=== PATIENT | female | born 1935 | race Caucasian/White ===

== ENCOUNTER 2022-05-27 21:46 | Inpatient (IN) | payer MEDICARE, OTHER ==
[~2022-05-27] VITALS: Ht 154.9 cm; Wt 36.7 kg
[~2022-05-27 21:46] MED LIST: ACET-2605 PO; ASPI-1420 PO; CALC-838 PO; CALC1TAB30 PO; CRAN500C5 PO; DEXT1CAP3 PO; DOCU-141 PO; DOCU-270 PO; HYDR-4384 PO; METO25TA6 PO; MULT-754 PO; MULT1TAB11 PO
--- NOTE | 2022-05-27 21:55 | NUR ---
[id number] FROM [facility] FOR "DARK COFFEE LIKE EMESIS" HX ULCERS. 88% ON RA. NOW 100% ON NRB. PATIENT IS AAOX3. ATTACHED TO MONITOR. VITALS CHECKED.
--- NOTE | 2022-05-27 22:07 | NUR ---
IRENE TOLBERT AT BEDSIDE FOR EKG
--- NOTE | 2022-05-27 22:07 | NUR ---
IV LINE ESTABLISHED, [id number]
--- NOTE | 2022-05-27 22:07 | NUR ---
BLOOD AND CULTURES COLLECTED
--- NOTE | 2022-05-27 22:40 | NUR ---
COVID SWAB DONE AND SENT TO LAB
[2022-05-27 22:42] LABS: BASOPHILS % (AUTO) 0.1 % (0.0-2.0); HEMATOCRIT 44 % (33-45); HEMOGLOBIN 14.3 g/dL (11.5-14.8); LYMPHOCYTES # (AUTO) 0.5 K/uL (0.8-4.8); LYMPHOCYTES % (AUTO) 3.8 % (20.0-44.0); MEAN CORPUSCULAR HGB CONC 32 g/dl (31.0-36.0); MEAN CORPUSCULAR VOLUME 82 fL (82-100); MONOCYTES # (AUTO) 0.4 K/uL (0.1-1.30); NEUTROPHILS # (AUTO) 12.2 K/uL (1.8-8.9); NEUTROPHILS % (AUTO) 93.1 % (43.0-81.0); PLATELET COUNT (AUTO) 145 K/uL (150-450); RED BLOOD CELL COUNT(AUTO) 5.42 MIL/uL (4.0-5.2); WHITE BLOOD COUNT (AUTO) 13.1 K/uL (4.3-11.0)
[2022-05-27] MEDS ORDERED: IV NS 0.9% 1,000 ML BAG IV ONE (23:00)
[2022-05-27 23:01] LABS: CARBON DIOXIDE 26 mmol/L (21-32); CHLORIDE 117 mmol/L (98-107); CREATININE 1.2 mg/dL (0.6-1.3); GLUCOSE 238 mg/dL (74-106); POTASSIUM 3.8 mmol/L (3.5-5.1); SODIUM SERUM 143 mmol/L (136-145); UREA NITROGEN, BLOOD 38 mg/dL (7-18)
[2022-05-27 23:10] LABS: ALANINE AMINOTRANSFERASE 16 U/L (12-78); ALBUMIN 3.3 g/dL (3.4-5.0); ALKALINE PHOSPHATASE 70 U/L (46-116); ASPARTATE AMINOTRANSFERASE 38 U/L (15-37); BILIRUBIN,DIRECT 0.2 mg/dL (0.0-0.2); BILIRUBIN,TOTAL 0.5 mg/dL (0.2-1.0); LIPASE 220 U/L (73-393); TOTAL PROTEIN, SERUM 7.3 g/dL (6.4-8.2)
[2022-05-28] VITALS (9 sets, daily range): BP systolic 82–111; BP diastolic 1–77
--- NOTE | 2022-05-28 00:23 | NUR ---
BED 322-2
--- NOTE | 2022-05-28 00:30 | NUR ---
REPORT GIVEN TO ADI DECEMBER.
[2022-05-28] MEDS ORDERED: MIRT-121 PO (00:35)
[2022-05-28] MEDS ORDERED: SENN-18 PO (00:35)
[2022-05-28] MEDS ORDERED: GABA-532 PO (00:35)
[2022-05-28] MEDS ORDERED: AMIN30LI2 PO (00:35)
--- NOTE | 2022-05-28 01:30 | NUR ---
PARKING ENFORCEMENT SPECIALISTALTERNATIVE EDUCATION TEACHER NOTES RECEIVED PATIENT FROM ED VIA [facility] AT 0110 UNDER THE CARE OF ROSA MATIAS WITH DX OF SEPSIS AND GI BLEEDING. PATIENT IS A/O X0, DOES NOT RESPOND TO QUESTIONS. ON O2 AT 15LPM VIA NON-REBREATHER MASK. BREATHING EVEN AND NON-LABORED. NOT IN APPARENT DISTRESS. NO PAIN OR DISCOMFORT NOTED. HAS RIGHT FOREARM IV ACCESS #20G AND SALINE LOCKED. NO S/S OF INFILTRATION NOTED. INCONTINENT WEARING DIAPER. VS TAKEN. PHYSICAL ASSESSMENT DONE AND PHOTOS TAKEN. ALL BELONGINGS ACCOUNTED FOR. ORIENTED PATIENT TO UNIT AND STAFF. SAFETY PRECAUTIONS IN PLACE: BED LOW AND LOCKED, SIDE RAILS UP X3, CALL LIGHT WITHIN REACH. WILL CONTINUE POC.
--- NOTE | 2022-05-28 01:36 | NUR ---
TRANSFERRED PT TO ROOM
[2022-05-28] MEDS ORDERED: DEXTROSE 50%-WATER 50 ML DISP.SYRIN IV PRN (02:30)
[2022-05-28] MEDS ORDERED: MAGNESIUM HYDROXIDE 30 ML UDC PO PRN (02:30)
[2022-05-28] MEDS ORDERED: HYDROCODONE/APAP 5/325MG TABLET PO PRN (02:30)
[2022-05-28] MEDS ORDERED: ZOLPIDEM TARTRATE 5 MG TABLET PO PRN (02:30)
[2022-05-28] MEDS ORDERED: INSULIN REGULAR, HUMAN 100 UNIT/ML 3 ML VIAL SQ PRN (02:30)
[2022-05-28] MEDS ORDERED: Z GUARD REMEDY 4 OZ OINT TP PRN (02:30)
[2022-05-28] MEDS ORDERED: CEFTRIAXONE 1 G in IV D5W 50 ML IV SCH (02:30)
[2022-05-28] MEDS ORDERED: ONDANSETRON HCL/PF 4 MG/2 ML VIAL IVP PRN (02:30)
[2022-05-28] MEDS ORDERED: MAG HYDROX/AL HYDROX/SIMETH 30 ML UDC PO PRN (02:30)
[2022-05-28] MEDS ORDERED: ACETAMINOPHEN 325 MG TABLET PO PRN (02:30)
[2022-05-28] MEDS ORDERED: CEFTRIAXONE 1 G VIAL ONE (02:42)
[2022-05-28] MEDS: PANTOPRAZOLE 40 MG VIAL IV SCH ×3 (03:02→21:03)
[2022-05-28] MEDS ORDERED: METRONIDAZOLE 500MG/ NS 100ML 100 ML IV ONE (03:38)
[2022-05-28] MEDS: METRONIDAZOLE 500MG/ NS 100ML 500 MG in PREMIX 1 EA IV SCH ×3 (03:48→18:46)
--- NOTE | 2022-05-28 04:00 | NUR ---
SIGNAL MAINTAINER NOTES RECEIVED CALL FROM LAB FOR CRITICAL LAB VALUES, AWARE: - LACTIC ACID 2.2 - PROCALCITONIN 28.12
--- NOTE | 2022-05-28 04:10 | NUR ---
SURGICAL ELASTIC KNITTER HAND FRAME NOTES SPOKE [place]/ ROBBY FROM [facility] AND ASKED FOR PATIENT'S VACCINATION RECORD. SHE WILL FAX IT TO ME. I ALSO NOTIFIED PATIENT'S UZIEL AYDEN. Addendum: 05/28/22 at 0426 by December ARDEN JOSHI RECEIVED A CALL BACK FROM ROBBY AND SHE CAN'T FIND THE PATIENT'S VACCINATION RECORD. WILL ENDORSE TO NEXT SHIFT.
--- NOTE | 2022-05-28 05:00 | NUR ---
OCEANOLOGY TEACHER NOTES URINE SAMPLE TAKEN VIA STRAIGHT CATH AND SENT TO LAB.
[2022-05-28] MEDS: BLOOD SUGAR DIAGNOSTIC 1 EACH STRIP IN SCH ×4 (06:36→21:52)
[2022-05-28 06:43] LABS: CALCIUM, SERUM 7.7 mg/dL (8.5-10.1); MAGNESIUM 2.1 mg/dL (1.8-2.4); PHOSPHORUS 3.1 mg/dL (2.5-4.9); POTASSIUM 4.1 mmol/L (3.5-5.1)
[2022-05-28 06:43] LABS: BILIRUBIN,URINE NEGATIVE (NEGATIVE); COLOR,URINE YELLOW (YELLOW); LEUKOCYTE ESTERASE ,URINE 3+ (NEGATIVE); NITRITE, URINE POSITIVE (NEGATIVE); PH,URINE 5.5 (5.0-8.0); PROTEIN,URINE NEGATIVE (NEGATIVE); UGLUCOSE NEGATIVE (NEGATIVE); UROBILINOGEN,URINE 0.2 EU/dL (0.2)
[2022-05-28 06:55] LABS: BASOPHILS % (AUTO) 0.1 % (0.0-2.0); HEMATOCRIT 36 % (33-45); HEMOGLOBIN 11.6 g/dL (11.5-14.8); LYMPHOCYTES # (AUTO) 0.8 K/uL (0.8-4.8); LYMPHOCYTES % (AUTO) 6.1 % (20.0-44.0); MEAN CORPUSCULAR HGB CONC 33 g/dl (31.0-36.0); MEAN CORPUSCULAR VOLUME 81 fL (82-100); MONOCYTES # (AUTO) 0.6 K/uL (0.1-1.30); MONOCYTES % (AUTO) 4.5 % (2.0-12.0); NEUTROPHILS # (AUTO) 12.3 K/uL (1.8-8.9); NEUTROPHILS % (AUTO) 89.3 % (43.0-81.0); PLATELET COUNT (AUTO) 97 K/uL (150-450); RED BLOOD CELL COUNT(AUTO) 4.38 MIL/uL (4.0-5.2); WHITE BLOOD COUNT (AUTO) 13.8 K/uL (4.3-11.0)
--- NOTE | 2022-05-28 06:57 | NUR ---
NATIONAL ACCOUNTS RECRUITERSUPERVISOR TAN ROOM NOTES PATIENT LAYING IN BED AWAKE. STILL NO VERBAL RESPONSE. HYPOTENSION NOTED, ELEVATED LEGS. WARM TO TOUCH BUT AFEBRILE. NO SOB OR NOTED. TITRATED O2 TO 2LPM VIA NASAL CANULA SATURATING FROM 95-99%. ON TELE MONITOR READING SINUS TACHYCARDIA AT 122 BPM. RIGHT FOREARM IV ACCESS INTACT, PATENT AND FLUSHING. ALL DUE MEDS GIVEN AND NEEDS ATTENDED. SKIN CARE RENDERED. TURNED Q2H AND OFFLOAD. SAFETY PRECAUTIONS MAINTAINED. WILL ENDORSE TO NEXT SHIFT FOR AVTAR.
--- NOTE | 2022-05-28 06:58 | NUR ---
INSTRUCTIONAL TECHNOLOGY FACILITATOR CLOSING NOTES PATIENT LAYING IN BED AWAKE. STILL NO VERBAL RESPONSE. HYPOTENSION NOTED, ELEVATED LEGS. WARM TO TOUCH BUT AFEBRILE. NO SOB OR NOTED. TITRATED O2 TO 2LPM VIA NASAL CANULA SATURATING FROM 95-99%. ON TELE MONITOR READING SINUS TACHYCARDIA AT 122 BPM. RIGHT FOREARM IV ACCESS INTACT, PATENT AND FLUSHING. ALL DUE MEDS GIVEN AND NEEDS ATTENDED. SKIN CARE RENDERED. TURNED Q2H AND OFFLOAD. SAFETY PRECAUTIONS MAINTAINED. WILL ENDORSE TO NEXT SHIFT FOR AVTAR.
--- NOTE | 2022-05-28 07:30 | NUR ---
RN Receiving Report. Not able to assess patients mental status. IV running as ordered with no signs of infiltration. Patient looks comfortable and clean, no signs of distress or discomfort. All safety precautions taken, call light and table within reach, bed at lowest position.
[2022-05-28 08:30] LABS: BACTERIA,URINE Many /HPF (None Seen); SQUAMOUS EPITHELIAL CELL,UR Few /HPF (None Seen); WBC,URINE 21-50 /HPF (0-3)
[2022-05-28 08:47] LABS: THYROID STIMULATING HORMONE 0.495 uIU/mL (0.358-3.74)
[2022-05-28] MEDS ORDERED: HYDR-4209 PO (08:48)
[2022-05-28] MEDS ORDERED: MAGN400O6 PO (08:48)
[2022-05-28] MEDS ORDERED: METO25CA PO (08:48)
[2022-05-28] MEDS ORDERED: BISA10SU11 RC (08:48)
[2022-05-28] MEDS ORDERED: NA P133E RC (08:48)
[2022-05-28] MEDS ORDERED: MULT-447 PO (08:48)
[2022-05-28] MEDS ORDERED: ACET-868 PO (08:48)
[2022-05-28] MEDS: GABAPENTIN 100 MG CAPSULE PO SCH ×2 (09:00→17:00)
[2022-05-28] MEDS ORDERED: METOPROLOL TARTRATE 25 MG TABLET PO SCH (09:00)
[2022-05-28] MEDS: PROSOURCE / PROSTAT (PYXIS) 30 ML UDC PO SCH (09:00)
[2022-05-28] MEDS: MULTIVIT W/MINERALS 1 TAB TABLET PO SCH (09:00)
[2022-05-28] MEDS: CALCIUM CARB 250MG /VITAMIN D 1 UDTAB PO SCH (09:00)
[2022-05-28] MEDS: FUROSEMIDE 20 MG/2 ML VIAL IV SCH ×2 (09:56→17:18)
[2022-05-28] MEDS: METOPROLOL TARTRATE 25 MG TABLET PO SCH ×2 (10:00→21:00)
--- NOTE | 2022-05-28 10:21 | NUR ---
WOUND CARE CONSULT: PT PRESENTS WITH CACHEXIA, LEFT ELBOW SCAR, SACRAL INTACT DEEP TISSUE INJURY AND SCARRING, PRESENT ON ADMISSION. RECOMMENDATIONS MADE FOR SKIN PROTECTION. DISCUSSED WITH NURSING STAFF. PT IS INCONTINENT. PT TO BE PLACED ON LUIS A ISOFLEX LOW AIRLOSS BED. IN AGREEMENT WITH PLAN OF CARE. Addendum: 05/28/22 at 1024 by PITER MACKENZIE WNDNU Amended: Links added.
[2022-05-28 11:22] LABS: BAND % (MANUAL) 21 % (0.0-5.0); LYMPHOCYTES % (MANUAL) 10 % (16-48); MONOCYTES % (MANUAL) 4 % (0-11.0); NEUTROPHILS % (MANUAL) 65 (42-76)
--- NOTE | 2022-05-28 18:39 | NUR ---
RN Closing Note Not able to assess patient mental status, patient responds to touch by opening and moving eyes. Administered pain medication and provided care as needed. All safety precautions taken throughout shift. Call light and table within reach, bed at lowest position.
--- NOTE | 2022-05-28 19:30 | NUR ---
LANDSCAPE CREW LEADER OPENING NOTE RECEIVED PATIENT IN BED, AWAKE, WITH EYES OPEN. AFEBRILE AND NOT IN ANY FORM OF ACUTE DISTRESS. ON O2 INHALATION VIA NASAL CANNULA AT 2LPM. MAINTAINED ON NPO ORDERED. WITH IV ACCESS ON RFA 20G SL. SAFETY MEASURES IN PLACE. KEPT BED IN LOCKED AND IN LOW POSITION TO REDUCE INJURY. SIDE RAILS UP X2. CALL LIGHT WITHIN EASY REACH.
[2022-05-28] MEDS: MEROPENEM 500 MG in IV NS 0.9% 50 ML IV SCH (21:12)
[2022-05-28] MEDS: MIRTAZAPINE 15 MG TABLET PO SCH (21:54)
--- NOTE | 2022-05-28 21:54 | NUR ---
DISABILITIES SERVICES OFFICER NOTE PATIENT REMAINS TO BE NPO. BG CHECK DONE 115MG/DL NO COVERAGE NEEDED. ALSO, MIRTAZAPINE WAS HELD SINCE PATIENT IS DIAGNOSED WITH GI BLEED. CHARGE NURSE NOTIFIED ABOUT THE SITUATION AND ADVISED TO JUST HOLD MEDICATION AT THIS TIME.
[2022-05-29] VITALS: BP 112/55
[2022-05-29 04:00] VITALS: BP 117/68
[2022-05-29 06:19] LABS: BASOPHILS % (AUTO) 0.1 % (0.0-2.0); EOSINOPHILS % (AUTO) 0.7 % (0.0-6.0); HEMATOCRIT 33 % (33-45); HEMOGLOBIN 10.9 g/dL (11.5-14.8); LYMPHOCYTES # (AUTO) 0.9 K/uL (0.8-4.8); LYMPHOCYTES % (AUTO) 11.3 % (20.0-44.0); MEAN CORPUSCULAR HGB CONC 33 g/dl (31.0-36.0); MEAN CORPUSCULAR VOLUME 82 fL (82-100); MONOCYTES # (AUTO) 0.3 K/uL (0.1-1.30); MONOCYTES % (AUTO) 3.7 % (2.0-12.0); NEUTROPHILS # (AUTO) 6.4 K/uL (1.8-8.9); NEUTROPHILS % (AUTO) 84.2 % (43.0-81.0); PLATELET COUNT (AUTO) 78 K/uL (150-450); WHITE BLOOD COUNT (AUTO) 7.6 K/uL (4.3-11.0)
[2022-05-29 06:29] LABS: CALCIUM, SERUM 8.4 mg/dL (8.5-10.1); CARBON DIOXIDE 28 mmol/L (21-32); CHLORIDE 110 mmol/L (98-107); GLUCOSE 116 mg/dL (74-106); MAGNESIUM 2.1 mg/dL (1.8-2.4); PHOSPHORUS 3.1 mg/dL (2.5-4.9); POTASSIUM 3.3 mmol/L (3.5-5.1); SODIUM SERUM 147 mmol/L (136-145); UREA NITROGEN, BLOOD 33 mg/dL (7-18)
--- NOTE | 2022-05-29 06:30 | NUR ---
MILK DELIVERY DRIVER CLOSING NOTE PATIENT IN BED, ASLEEP BUT EASY TO AROUSE AND RESPONDS TO VERBAL AND TACTILE STIMULI. AFEBRILE AND NOT IN ANY FORM OF ACUTE DISTRESS. ON O2 INHALATION VIA NASAL CANNULA AT 2LPM. MAINTAINED ON NPO ORDERED. WITH IV ACCESS ON RFA 20G SL. MEDICATED ORDERED. ON IV ATB, MONITORED FOR ANY ADVERSE REACTION. SAFETY MEASURES IN PLACE. KEPT BED IN LOCKED AND IN LOW POSITION TO REDUCE INJURY. SIDE RAILS UP X2. CALL LIGHT WITHIN EASY REACH. TURNED AND REPOSITIONED EVERY 2 HOURS AND TOLERATED TO PROMOTE PROPER CIRCULATION BY ASSIGNED STAFF. ALL NURSING NEEDS ATTENDED. ENDORSED TO INCOMING SHIFT FOR CONTINUITY OF CARE.
[2022-05-29] MEDS: BLOOD SUGAR DIAGNOSTIC 1 EACH STRIP IN SCH ×4 (06:41→23:18)
--- NOTE | 2022-05-29 07:36 | NUR ---
RN Opening Note. Not able to assess patients mental status. Patient sleeping, easily aroused to name. IV with no signs of infiltration. Patient looks comfortable and clean, no signs of distress or discomfort. Patient on oxygen supplement with no signs of respiratory distress. Made patient aware of care plan, not able to comprehend. All safety precautions taken, call light and table within reach, bed at lowest position.
[2022-05-29 08:00] VITALS: BP 120/60
[2022-05-29] MEDS: MULTIVIT W/MINERALS 1 TAB TABLET PO SCH (09:00)
[2022-05-29] MEDS: GABAPENTIN 100 MG CAPSULE PO SCH ×2 (09:00→17:00)
[2022-05-29] MEDS: PROSOURCE / PROSTAT (PYXIS) 30 ML UDC PO SCH (09:00)
[2022-05-29] MEDS: CALCIUM CARB 250MG /VITAMIN D 1 UDTAB PO SCH (09:00)
[2022-05-29] MEDS ORDERED: Medication Not On Formulary EA (Metoprolol Succinate (Kapspargo Sprinkle) 25 MG) PO SCH (09:00)
[2022-05-29] MEDS: METOPROLOL TARTRATE 25 MG TABLET PO SCH ×2 (09:00→21:00)
[2022-05-29] MEDS: PANTOPRAZOLE 40 MG VIAL IV SCH ×2 (09:22→21:51)
[2022-05-29] MEDS: FUROSEMIDE 20 MG/2 ML VIAL IV SCH (09:22)
[2022-05-29] MEDS: MEROPENEM 500 MG in IV NS 0.9% 50 ML IV SCH ×2 (09:24→21:51)
[2022-05-29] MEDS: POTASSIUM CL. PREMIX PERIPHER. 50 ML IV SCH ×2 (11:18→12:03)
[2022-05-29 16:25] VITALS: BP 115/59
[2022-05-29 17:39] LABS: BAND % (MANUAL) 4 % (0.0-5.0); BASOPHILS % (MANUAL) 0 % (0.0-2.0); EOSINOPHILS % (MANUAL) 0 % (0-4); LYMPHOCYTES % (MANUAL) 9 % (16-48); MONOCYTES % (MANUAL) 3 % (0-11.0); NEUTROPHILS % (MANUAL) 84 (42-76)
--- NOTE | 2022-05-29 18:24 | NUR ---
RN Closing Note Not able to assess patient mental status, patient responds to touch by opening and moving eyes. Niece was here, states she has not seen patient in months. Would like to discussed options to provide comfort to patietn. Patient did not try to engage with patient, remained flat affect. Administered pain medication and provided care as needed. Patient to remain NPO since pt did not pass swallow eval. All safety precautions taken throughout shift. Call light and table within reach, bed at lowest position.
--- NOTE | 2022-05-29 19:35 | NUR ---
NEGATIVE DEVELOPER OPENING NOTE RECEIVED PT IN BED, SLEEPING AT THIS TIME. UNABLE TO ASSESS MENTAL STATUS, RESPONDS TO TOUCH BY OPENING EYES. ON O2 2LPM VIA NC, WITH NO S/S OF SOB OR LABORED BREATHING. ON TELE MONITOR READING SR, HR 74. PUREWICK INTACT WITH 150 ML URINE OUTPUT NOTED. IV ACCESS RFA #20G SL, PATENT AND INTACT. SAFETY PRECAUTIONS IN PLACE: BED LOCKED AND IN LOW POSITION, SIDE RAILS UP X3, CALL LIGHT WITHIN REACH. WILL CONTINUE TO MONITOR AND ASSIST.
[2022-05-29 20:00] VITALS: BP 142/72
[2022-05-29] MEDS ORDERED: DEXTROSE 50%-WATER 50 ML DISP.SYRIN IV PRN (20:30)
[2022-05-29] MEDS: MIRTAZAPINE 15 MG TABLET PO SCH (21:53)
[2022-05-29] MEDS: INSULIN REGULAR, HUMAN 100 UNIT/ML 3 ML VIAL SQ PRN (23:19)
[2022-05-30] VITALS: BP 107/61
[2022-05-30] MEDS ORDERED: IV D5/0.45 NACL 1,000 ML IV ONE (01:00)
[2022-05-30 04:00] VITALS: BP 132/69
[2022-05-30 05:58] LABS: BASOPHILS % (AUTO) 0.1 % (0.0-2.0); EOSINOPHILS % (AUTO) 0.9 % (0.0-6.0); HEMATOCRIT 33 % (33-45); HEMOGLOBIN 10.9 g/dL (11.5-14.8); LYMPHOCYTES # (AUTO) 0.7 K/uL (0.8-4.8); LYMPHOCYTES % (AUTO) 11.1 % (20.0-44.0); MEAN CORPUSCULAR HGB CONC 33 g/dl (31.0-36.0); MEAN CORPUSCULAR VOLUME 83 fL (82-100); MONOCYTES # (AUTO) 0.3 K/uL (0.1-1.30); MONOCYTES % (AUTO) 4.3 % (2.0-12.0); NEUTROPHILS % (AUTO) 83.6 % (43.0-81.0); PLATELET COUNT (AUTO) 86 K/uL (150-450); RED BLOOD CELL COUNT(AUTO) 3.98 MIL/uL (4.0-5.2)
[2022-05-30 06:25] LABS: ALBUMIN 3.1 g/dL (3.4-5.0); BILIRUBIN,TOTAL 0.6 mg/dL (0.2-1.0); MAGNESIUM 2.3 mg/dL (1.8-2.4); PHOSPHORUS 3.5 mg/dL (2.5-4.9); POTASSIUM 3.6 mmol/L (3.5-5.1)
--- NOTE | 2022-05-30 07:20 | NUR ---
BLEACH CHLORINATOR CLOSING NOTE PT IN BED, SLEEPING AT THIS TIME. UNABLE TO ASSESS MENTAL STATUS, RESPONDS TO TOUCH BY OPENING EYES. STABLE ON O2 2LPM VIA NC, WITH NO S/S OF SOB OR LABORED BREATHING. ON TELE MONITOR READING SR, HR 71. PUREWICK INTACT. IV ACCESS RFA #20G RUNNING D5 1/2 NS @ 80 ML/HR, PATENT AND INTACT. ALL CARE PROVIDED AND ADMINISTERED MEDICATIONS TOLERATED WELL. SAFETY PRECAUTIONS MAINTAINED: BED LOCKED AND IN LOW POSITION, SIDE RAILS UP X3, CALL LIGHT WITHIN REACH. WILL ENDORSE AVTAR TO SHIPBUILDING DRAFTSPERSON NURSE.
[2022-05-30] MEDS: BLOOD SUGAR DIAGNOSTIC 1 EACH STRIP IN SCH ×4 (07:33→23:44)
[2022-05-30] MEDS: INSULIN REGULAR, HUMAN 100 UNIT/ML 3 ML VIAL SQ PRN ×2 (07:34→23:45)
--- NOTE | 2022-05-30 07:34 | NUR ---
RN NOTE INSULIN NON-ADMIN DUE TO STARTED ONE TIME DOSE OF D5 1/2 NS 80 ML/HR FROM LAST NIGHT. PT BLOOD GLUCOSE BASELINE IS TYPICALLY LOWER WITHOUT THE IV FLUID (PREVIOUS: 95, 101, 109).
[2022-05-30 08:00] VITALS: BP 141/68
[2022-05-30 08:01] LABS: LYMPHOCYTES % (MANUAL) 12 % (16-48); MONOCYTES % (MANUAL) 3 % (0-11.0); NEUTROPHILS % (MANUAL) 85 (42-76)
[2022-05-30] MEDS: PANTOPRAZOLE 40 MG VIAL IV SCH (08:58)
[2022-05-30] MEDS: METOPROLOL TARTRATE 25 MG TABLET PO SCH ×2 (08:58→20:52)
[2022-05-30] MEDS: CALCIUM CARB 250MG /VITAMIN D 1 UDTAB PO SCH (08:59)
[2022-05-30] MEDS: GABAPENTIN 100 MG CAPSULE PO SCH ×2 (08:59→17:00)
[2022-05-30] MEDS: MULTIVIT W/MINERALS 1 TAB TABLET PO SCH (09:00)
[2022-05-30] MEDS: PROSOURCE / PROSTAT (PYXIS) 30 ML UDC PO SCH (09:00)
[2022-05-30] MEDS: MEROPENEM 500 MG in IV NS 0.9% 50 ML IV SCH ×2 (09:18→20:35)
[2022-05-30 15:58] VITALS: BP 136/64
--- NOTE | 2022-05-30 18:41 | NUR ---
RN Closing Note Not able to assess patient mental status, patient responds to touch by opening and moving eyes. Per Dr. BARAKAT no invasive procedures, no EGD, no GTube. Would like to discussed options to provide comfort to patient. Patient remained flat affect throughout shift, non arousal. Administered pain medication and provided care as needed. Patient to remain NPO since pt did not pass swallow eval. All safety precautions taken throughout shift. Call light and table within reach, bed at lowest position.
--- NOTE | 2022-05-30 19:30 | NUR ---
FURNITURE MANAGER OPENING NOTE RECEIVED PT IN BED, AWAKE, A/O X 1. RESPONDS TO NAME AND TOUCH. CURRENTLY ON O2 VIA NC @ 2 LPM, TOLERATING WELL WITH NO S/SX OF ACUTE RESPI DISTRESS NOTED. NO SOB UPON ASSESSMENT. BREATHING IS EVEN AND UNLABORED. ON TELE MONITOR READING SR, HR 80s. IV ACCESS NOTED ON RFA #20G SL, PATENT AND INTACT. ALL SAFETY PRECAUTIONS IN PLACE: BED LOCKED AND IN LOW POSITION, SIDE RAILS UP X3, CALL LIGHT WITHIN REACH. WILL CONTINUE TO MONITOR T/O THE NIGHT.
[2022-05-30 20:00] VITALS: BP 135/49
[2022-05-30] MEDS: PANTOPRAZOLE 40 MG/PACK PACK PO SCH (20:53)
[2022-05-30] MEDS: MIRTAZAPINE 15 MG TABLET PO SCH (21:16)
--- NOTE | 2022-05-30 21:16 | NUR ---
RN NOTE HELD ALL PO MEDS TONIGHT. PT STILL NPO PER MD ORDER.
[2022-05-31] VITALS: BP 146/30
[2022-05-31 04:00] VITALS: BP 143/73
[2022-05-31] MEDS: BLOOD SUGAR DIAGNOSTIC 1 EACH STRIP IN SCH ×4 (05:12→23:31)
[2022-05-31] MEDS: INSULIN REGULAR, HUMAN 100 UNIT/ML 3 ML VIAL SQ PRN ×3 (05:12→23:31)
[2022-05-31 05:57] LABS: EOSINOPHILS % (AUTO) 1.1 % (0.0-6.0); HEMATOCRIT 34 % (33-45); HEMOGLOBIN 10.9 g/dL (11.5-14.8); LYMPHOCYTES # (AUTO) 0.6 K/uL (0.8-4.8); LYMPHOCYTES % (AUTO) 12.5 % (20.0-44.0); MEAN CORPUSCULAR HGB CONC 33 g/dl (31.0-36.0); MEAN CORPUSCULAR VOLUME 83 fL (82-100); MONOCYTES # (AUTO) 0.2 K/uL (0.1-1.30); MONOCYTES % (AUTO) 3.8 % (2.0-12.0); NEUTROPHILS # (AUTO) 4.1 K/uL (1.8-8.9); NEUTROPHILS % (AUTO) 82.6 % (43.0-81.0); PLATELET COUNT (AUTO) 93 K/uL (150-450); RED BLOOD CELL COUNT(AUTO) 4.06 MIL/uL (4.0-5.2)
--- NOTE | 2022-05-31 06:02 | NUR ---
RN NOTE NO SIGNIFICANT CHANGES T/O THE NIGHT. ALL VS STABLE. ABX GIVEN. NEEDS ATTENDED TO. TURNED AND REPOSITIONED. WILL ENDORSE TO AM SHIFT NURSE FOR AVTAR.
--- NOTE | 2022-05-31 07:30 | NUR ---
DISHWASHING MACHINE REPAIRER OPENING NOTE RECEIVED PT IN BED, AWAKE, A/O X 1. RESPONDS TO NAME AND TOUCH. ON O2 VIA NASAL CANNULA @ 2 LPM, TOLERATING WELL WITH NO S/SX OF ACUTE RESPIRATORY DISTRESS NOTED. NO SOB NOTED. BREATHING IS EVEN AND UNLABORED. ON TELE MONITOR CURRENTLY READING SINUS RHYTHM AT 81BPM. WITH IV ACCESS NOTED ON RIGHT FOREARM G20, PATENT AND INTACT. SAFETY MEASURES IN PLACED: BED LOCKED AND IN LOW POSITION, SIDE RAILS UP X3, CALL LIGHT WITHIN REACH. WILL CONTINUE TO MONITOR.
[2022-05-31 08:00] VITALS: BP 138/76
[2022-05-31 08:09] LABS: CALCIUM, SERUM 8.5 mg/dL (8.5-10.1); CREATININE 0.7 mg/dL (0.6-1.3); MAGNESIUM 2.3 mg/dL (1.8-2.4); POTASSIUM 3.4 mmol/L (3.5-5.1)
[2022-05-31] MEDS: MEROPENEM 500 MG in IV NS 0.9% 50 ML IV SCH (08:28)
[2022-05-31] MEDS: MULTIVIT W/MINERALS 1 TAB TABLET PO SCH (08:36)
[2022-05-31] MEDS: GABAPENTIN 100 MG CAPSULE PO SCH ×2 (08:36→16:08)
[2022-05-31] MEDS: CALCIUM CARB 250MG /VITAMIN D 1 UDTAB PO SCH (08:36)
[2022-05-31] MEDS: METOPROLOL TARTRATE 25 MG TABLET PO SCH ×2 (08:36→20:09)
[2022-05-31] MEDS: PROSOURCE / PROSTAT (PYXIS) 30 ML UDC PO SCH (08:36)
[2022-05-31] MEDS: PANTOPRAZOLE 40 MG/PACK PACK PO SCH ×2 (08:36→20:10)
[2022-05-31 09:25] LABS: LYMPHOCYTES % (MANUAL) 17 % (16-48); MONOCYTES % (MANUAL) 2 % (0-11.0); NEUTROPHILS % (MANUAL) 81 (42-76)
[2022-05-31] MEDS ORDERED: POTASSIUM CHLORIDE 20 MEQ TAB.PRT.SR PO SCH (10:00)
[2022-05-31] MEDS: POTASSIUM CL. PREMIX PERIPHER. 50 ML IV SCH ×4 (10:39→15:19)
[2022-05-31 16:00] VITALS: BP 149/78
--- NOTE | 2022-05-31 18:45 | NUR ---
MS RN CLOSING NOTES RECEIVED PT IN BED, RESTING, A/O X 1. RESPONDS TO NAME AND TOUCH. ON O2 VIA NASAL CANNULA @ 2 LPM, TOLERATING WELL WITH NO S/SX OF ACUTE RESPIRATORY DISTRESS NOTED. NO SOB NOTED. BREATHING IS EVEN AND UNLABORED. WITH IV ACCESS NOTED ON LEFT HAND G24, PATENT AND INTACT. SAFETY MEASURES IN PLACED: BED LOCKED AND IN LOW POSITION, SIDE RAILS UP X3, CALL LIGHT WITHIN REACH. WILL ENDORSE TO NEXT SHIFT FOR AVTAR.
--- NOTE | 2022-05-31 19:40 | NUR ---
RN OPENING NOTES RECEIVED PT IN BED, ASLEEP, AWAKENS TO VERBAL STIMULI. AOx1, ABLE TO MAKE NEEDS KNOWN. ON NC 2LPM AND TOLERATING WELL. NO SOB NOTED. NO S/SX OF RESPIRATORY DISTRESS NOTED. IV ACCESS IN AND #24G. IV IS INTACT, PATENT, AND FLUSHING WELL. SAFETY PRECAUTIONS IN PLACE: BED IN LOWEST, LOCKED POSITION, SIDERAILS UPx2, AND BRAKES ON. TABLE AND CALL LIGHT WITHIN REACH. ALL NEEDS MET AT THIS TIME.
[2022-05-31 20:00] VITALS: BP_SYST 118; BP_SYST 152; BP_DIAS 61; BP_DIAS 77
[2022-05-31] MEDS: MEROPENEM 1 G in IV NS 0.9% 100 ML IV SCH (20:20)
[2022-05-31] MEDS: MIRTAZAPINE 15 MG TABLET PO SCH (21:01)
[2022-06-01] MEDS: BLOOD SUGAR DIAGNOSTIC 1 EACH STRIP IN SCH ×3 (06:04→17:12)
[2022-06-01] MEDS: INSULIN REGULAR, HUMAN 100 UNIT/ML 3 ML VIAL SQ PRN ×3 (06:06→17:13)
[2022-06-01 06:12] LABS: BASOPHILS % (AUTO) 0.1 % (0.0-2.0); EOSINOPHILS % (AUTO) 0.9 % (0.0-6.0); HEMATOCRIT 32 % (33-45); HEMOGLOBIN 10.3 g/dL (11.5-14.8); LYMPHOCYTES # (AUTO) 0.6 K/uL (0.8-4.8); LYMPHOCYTES % (AUTO) 16.8 % (20.0-44.0); MEAN CORPUSCULAR HGB CONC 32 g/dl (31.0-36.0); MEAN CORPUSCULAR VOLUME 83 fL (82-100); MONOCYTES # (AUTO) 0.2 K/uL (0.1-1.30); MONOCYTES % (AUTO) 5.3 % (2.0-12.0); NEUTROPHILS % (AUTO) 76.9 % (43.0-81.0); PLATELET COUNT (AUTO) 94 K/uL (150-450); RED BLOOD CELL COUNT(AUTO) 3.86 MIL/uL (4.0-5.2); WHITE BLOOD COUNT (AUTO) 3.9 K/uL (4.3-11.0)
--- NOTE | 2022-06-01 06:47 | NUR ---
RN CLOSING NOTES PT IN BED, ASLEEP, AWAKENS TO VERBAL STIMULI. OPENS EYES BUT NONVERBAL. ON NC 2LPM AND TOLERATING WELL. NO SOB NOTED. NO S/SX OF RESPIRATORY DISTRESS NOTED. IV ACCESS IN AND #24G. IV IS INTACT, PATENT, AND FLUSHING WELL. ALL ORDERS CARRIED OUT. ALL NEEDS MET. PT KEPT CLEAN AND DRY. SAFETY PRECAUTIONS IN PLACE: BED IN LOWEST, LOCKED POSITION, SIDERAILS UPx2, AND BRAKES ON. TABLE AND CALL LIGHT WITHIN REACH. WILL ENDORSE TO ONCOMING SHIFT FOR AVTAR.
[2022-06-01 06:48] LABS: BILIRUBIN,TOTAL 0.5 mg/dL (0.2-1.0); CALCIUM, SERUM 8.8 mg/dL (8.5-10.1); CREATININE 0.6 mg/dL (0.6-1.3); MAGNESIUM 2.4 mg/dL (1.8-2.4); POTASSIUM 3.8 mmol/L (3.5-5.1); TOTAL PROTEIN, SERUM 6.8 g/dL (6.4-8.2)
--- NOTE | 2022-06-01 07:30 | NUR ---
MS RN OPENING NOTES RECEIVED PT IN BED, AWAKE, A/O X 1. RESPONDS TO NAME AND TOUCH. ON O2 VIA NASAL CANNULA @ 2 LPM, TOLERATING WELL WITH NO S/SX OF ACUTE RESPIRATORY DISTRESS NOTED. NO SOB NOTED. BREATHING IS EVEN AND UNLABORED. WITH IV ACCESS NOTED ON LEFT HAND G24 SALINE LOCKED, PATENT AND INTACT. SAFETY MEASURES IN PLACED: BED LOCKED AND IN LOW POSITION, SIDE RAILS UP X3, CALL LIGHT WITHIN REACH. WILL CONTINUE TO MONITOR.
[2022-06-01 08:00] VITALS: BP 142/80
[2022-06-01 08:22] LABS: EOSINOPHILS % (MANUAL) 1 % (0-4); LYMPHOCYTES % (MANUAL) 15 % (16-48); MONOCYTES % (MANUAL) 6 % (0-11.0); NEUTROPHILS % (MANUAL) 78 (42-76)
[2022-06-01] MEDS: MEROPENEM 1 G in IV NS 0.9% 100 ML IV SCH (08:29)
[2022-06-01] MEDS: METOPROLOL TARTRATE 25 MG TABLET PO SCH ×2 (08:29→20:36)
[2022-06-01] MEDS: PANTOPRAZOLE 40 MG/PACK PACK PO SCH ×2 (08:30→20:36)
[2022-06-01] MEDS: CALCIUM CARB 250MG /VITAMIN D 1 UDTAB PO SCH (08:30)
[2022-06-01] MEDS: MULTIVIT W/MINERALS 1 TAB TABLET PO SCH (08:30)
[2022-06-01] MEDS: GABAPENTIN 100 MG CAPSULE PO SCH ×2 (08:30→16:03)
[2022-06-01] MEDS: PROSOURCE / PROSTAT (PYXIS) 30 ML UDC PO SCH (08:30)
[2022-06-01] MEDS: IV D5W 1,000 ML IV PRN (11:34)
[2022-06-01] MEDS ORDERED: LEVOFLOXACIN (250MG) 250 MG TABLET PO SCH (13:00)
[2022-06-01] MEDS ORDERED: METRONIDAZOLE 500 MG TABLET PO SCH (13:00)
[2022-06-01] MEDS: LEVOFLOXACIN 500 MG /D5W 100ML 500 MG in PREMIX 1 EA IV SCH (13:39)
[2022-06-01 16:00] VITALS: BP 144/83
--- NOTE | 2022-06-01 18:26 | NUR ---
MS RN CLOSING NOTES RECEIVED PT IN BED, RESTING, A/O X 1. RESPONDS TO NAME AND TOUCH. ON O2 VIA NASAL CANNULA @ 2 LPM, TOLERATING WELL WITH NO S/SX OF ACUTE RESPIRATORY DISTRESS NOTED. NO SOB NOTED. BREATHING IS EVEN AND UNLABORED. WITH IV ACCESS NOTED ON LEFT HAND G24, PATENT AND INTACT WITH D5W AT 75ML/HR INFUSING WELL. SAFETY MEASURES IN PLACED: BED LOCKED AND IN LOW POSITION, SIDE RAILS UP X3, CALL LIGHT WITHIN REACH. WILL ENDORSE TO NEXT SHIFT FOR AVTAR.
--- NOTE | 2022-06-01 20:00 | NUR ---
MS RN OPENING NOTES RECEIVED PATIENT IN BED, AWAKE, A/O X 1. RESPONDS TO NAME AND TOUCH. ON O2 VIA NASAL CANNULA @ 2 LPM, TOLERATING WELL WITH NO S/SX OF ACUTE RESPIRATORY DISTRESS NOTED. NO SOB NOTED. BREATHING IS EVEN AND UNLABORED. WITH IV ACCESS NOTED ON LEFT HAND G24 SALINE LOCKED, PATENT AND INTACT. SAFETY MEASURES IN PLACED: BED LOCKED AND IN LOW POSITION, SIDE RAILS UP X3, CALL LIGHT WITHIN REACH. WILL CONTINUE TO MONITOR.
[2022-06-01] MEDS: METRONIDAZOLE 500MG/ NS 100ML 500 MG in PREMIX 1 EA IV SCH (20:38)
[2022-06-01] MEDS: MIRTAZAPINE 15 MG TABLET PO SCH (21:47)
[2022-06-02] MEDS: IV D5W 1,000 ML IV PRN (05:25)
[2022-06-02] MEDS: METRONIDAZOLE 500MG/ NS 100ML 500 MG in PREMIX 1 EA IV SCH ×3 (05:25→20:41)
[2022-06-02 06:30] LABS: BASOPHILS % (AUTO) 0.1 % (0.0-2.0); EOSINOPHILS % (AUTO) 1.4 % (0.0-6.0); HEMATOCRIT 32 % (33-45); HEMOGLOBIN 10.7 g/dL (11.5-14.8); LYMPHOCYTES # (AUTO) 0.7 K/uL (0.8-4.8); LYMPHOCYTES % (AUTO) 16.7 % (20.0-44.0); MEAN CORPUSCULAR HGB CONC 33 g/dl (31.0-36.0); MEAN CORPUSCULAR VOLUME 82 fL (82-100); MONOCYTES # (AUTO) 0.3 K/uL (0.1-1.30); NEUTROPHILS # (AUTO) 3.1 K/uL (1.8-8.9); NEUTROPHILS % (AUTO) 74.8 % (43.0-81.0); PLATELET COUNT (AUTO) 95 K/uL (150-450); RED BLOOD CELL COUNT(AUTO) 3.94 MIL/uL (4.0-5.2); WHITE BLOOD COUNT (AUTO) 4.1 K/uL (4.3-11.0)
[2022-06-02] MEDS: BLOOD SUGAR DIAGNOSTIC 1 EACH STRIP IN SCH ×5 (06:45→23:53)
[2022-06-02 06:46] LABS: ALBUMIN 2.9 g/dL (3.4-5.0); BILIRUBIN,TOTAL 0.5 mg/dL (0.2-1.0); CALCIUM, SERUM 8.4 mg/dL (8.5-10.1); CREATININE 0.7 mg/dL (0.6-1.3); MAGNESIUM 2.1 mg/dL (1.8-2.4); PHOSPHORUS 2.1 mg/dL (2.5-4.9); POTASSIUM 3.3 mmol/L (3.5-5.1); TOTAL PROTEIN, SERUM 6.4 g/dL (6.4-8.2)
--- NOTE | 2022-06-02 07:30 | NUR ---
MS RN OPENING NOTES RECEIVED PT IN BED, AWAKE, NONVERBAL. ON O2 VIA NASAL CANNULA @ 2 LPM, TOLERATING WELL WITH NO S/SX OF ACUTE RESPIRATORY DISTRESS NOTED. NO SOB NOTED. BREATHING IS EVEN AND UNLABORED. WITH IV ACCESS NOTED ON LEFT HAND G24 SALINE LOCKED, PATENT AND INTACT. ALL SAFETY MEASURES IN PLACED: BED LOCKED AND IN LOW POSITION, SIDE RAILS UP X3, CALL LIGHT WITHIN REACH. HOB ELEVATED FOR ASPIRATION PRECAUTION. NPO. WILL CONTINUE TO MONITOR CLOSELY.
--- NOTE | 2022-06-02 07:35 | NUR ---
MS RN CLOSING NOTES PT IN BED, RESTING, A/O X 1. RESPONDS TO NAME AND TOUCH. ON O2 VIA NASAL CANNULA @ 2 LPM, TOLERATING WELL WITH NO S/SX OF ACUTE RESPIRATORY DISTRESS NOTED. NO SOB NOTED. BREATHING IS EVEN AND UNLABORED. WITH IV ACCESS NOTED ON LEFT HAND G24, PATENT AND INTACT WITH D5W AT 75ML/HR INFUSING WELL. SAFETY MEASURES IN PLACED: BED LOCKED AND IN LOW POSITION, SIDE RAILS UP X3, CALL LIGHT WITHIN REACH. WILL ENDORSE TO NEXT SHIFT FOR AVTAR.
[2022-06-02 08:00] VITALS: BP 136/66
[2022-06-02] MEDS: PROSOURCE / PROSTAT (PYXIS) 30 ML UDC PO SCH (09:00)
[2022-06-02] MEDS: METOPROLOL TARTRATE 25 MG TABLET PO SCH ×2 (09:00→20:22)
[2022-06-02] MEDS: CALCIUM CARB 250MG /VITAMIN D 1 UDTAB PO SCH (09:00)
[2022-06-02] MEDS: PANTOPRAZOLE 40 MG/PACK PACK PO SCH ×2 (09:00→20:23)
[2022-06-02] MEDS: MULTIVIT W/MINERALS 1 TAB TABLET PO SCH (09:00)
[2022-06-02] MEDS: GABAPENTIN 100 MG CAPSULE PO SCH ×2 (09:00→16:18)
--- NOTE | 2022-06-02 09:00 | NUR ---
RN NOTES HELD ALL PO MEDS FOR 0900 AM. PER QUALITY CONTROL LEAD CHANDNI PATIENT FAILED THE SWALLOW EVAL AND NO PO MEDS.
[2022-06-02] MEDS ORDERED: POTASSIUM CHLORIDE 20 MEQ TAB.PRT.SR PO SCH (10:00)
[2022-06-02] MEDS ORDERED: POTASSIUM CHLORIDE 10 MEQ/50 ML PREMIXED IVPB FOR PERIPHERAL LINE IV SCH (11:30)
[2022-06-02] MEDS: POTASSIUM CL. PREMIX PERIPHER. 50 ML IV SCH ×2 (11:49→14:43)
[2022-06-02] MEDS ORDERED: NEUTRA PHOS 1 POWD.PACKET PO ONE (14:00)
[2022-06-02] MEDS ORDERED: ACETAMINOPHEN 650 MG/SUPP.RECT RC PRN (14:00)
[2022-06-02] MEDS ORDERED: Sodium Phosphate 15 MMOL in IV NS 0.9% 245 ML IV ONE (14:30)
[2022-06-02] MEDS: LEVOFLOXACIN 500 MG /D5W 100ML 500 MG in PREMIX 1 EA IV SCH (14:32)
[2022-06-02 16:00] VITALS: BP 137/68
--- NOTE | 2022-06-02 18:55 | NUR ---
MS RN CLOSING NOTES PT IN BED, AWAKE, NONVERBAL. ON O2 VIA NASAL CANNULA @ 2 LPM, TOLERATING WELL WITH NO S/SX OF ACUTE RESPIRATORY DISTRESS NOTED. NO SOB NOTED. BREATHING IS EVEN AND UNLABORED. WITH IV ACCESS NOTED ON LEFT HAND G24 SALINE LOCKED, PATENT AND INTACT. ON D5 W HYDRATION AT 75 ML/HR. NO PO MEDS GIVEN. HELD ALL PO MEDS PER REPAIR WEAVER CHANDNI. IN POTASSIUM, IV ATB AND SODIUM PHOSPHATE GIVEN ORDERED.ALL SAFETY MEASURES IN PLACED: BED LOCKED AND IN LOW POSITION, SIDE RAILS UP X3, CALL LIGHT WITHIN REACH. HOB ELEVATED FOR ASPIRATION PRECAUTION. NPO. WILL ENDORSE FOR AVTAR..
--- NOTE | 2022-06-02 19:40 | NUR ---
MS RN OPENING NOTES RECEIVED PATIENT IN BED, RESTING, A/O X 1. RESPONDS TO NAME AND TOUCH. ON O2 VIA NASAL CANNULA @ 2 LPM, TOLERATING WELL WITH NO S/SX OF ACUTE RESPIRATORY DISTRESS NOTED. NO SOB NOTED. BREATHING IS EVEN AND UNLABORED. WITH IV ACCESS NOTED ON LEFT HAND G24, PATENT AND INTACT WITH D5W AT 75ML/HR INFUSING WELL. SAFETY MEASURES IN PLACED: BED LOCKED AND IN LOW POSITION, SIDE RAILS UP X3, CALL LIGHT WITHIN REACH. WILL CONTINUE TO MONITOR.
[2022-06-02 20:00] VITALS: BP 131/70
[2022-06-02] MEDS: MIRTAZAPINE 15 MG TABLET PO SCH (22:00)
[2022-06-03] MEDS: IV D5W 1,000 ML IV PRN (04:06)
[2022-06-03] MEDS: METRONIDAZOLE 500MG/ NS 100ML 500 MG in PREMIX 1 EA IV SCH ×2 (04:58→12:10)
[2022-06-03] MEDS: BLOOD SUGAR DIAGNOSTIC 1 EACH STRIP IN SCH ×2 (05:33→12:05)
[2022-06-03 07:00] VITALS: BP 128/69
--- NOTE | 2022-06-03 07:02 | NUR ---
MS RN CLOSING NOTES PATIENT IN BED, AWAKE, NONVERBAL. A/O X3. ON O2 VIA NASAL CANNULA @ 2 LPM, TOLERATING WELL WITH NO S/SX OF ACUTE RESPIRATORY DISTRESS NOTED. NO SOB NOTED. BREATHING IS EVEN AND UNLABORED. WITH IV ACCESS NOTED ON LEFT HAND G24 SALINE LOCKED, PATENT AND INTACT. ON D5 W HYDRATION AT 75 ML/HR. NO PO MEDS GIVEN. ALL SAFETY MEASURES IN PLACED: BED LOCKED AND IN LOW POSITION, SIDE RAILS UP X3, CALL LIGHT WITHIN REACH. HOB ELEVATED FOR ASPIRATION PRECAUTION. NPO. WILL ENDORSE FOR AVTAR.
--- NOTE | 2022-06-03 07:50 | NUR ---
RN OPENING NOTE- PATIENT IN BED ASLEEP THOUGH EASILY AWAKENED, A/O X 1. RESPONDS TO NAME ON O2 VIA NASAL CANNULA @ 2 LPM, TOLERATING WELL. PT W RALES ON AUSCULTATION, IV ACCESS NOTED ON LEFT HAND #24G PATENT / WITH D5W AT 75ML/HR INFUSING WELL. SAFETY MEASURES IN PLACED: BED LOCKED AND IN LOW POSITION, SIDE RAILS UP X3, CALL LIGHT WITHIN REACH. WILL CONTINUE TO MONITOR/ ASSIST
[2022-06-03] MEDS: GABAPENTIN 100 MG CAPSULE PO SCH (08:59)
[2022-06-03] MEDS: MULTIVIT W/MINERALS 1 TAB TABLET PO SCH (08:59)
[2022-06-03] MEDS: PANTOPRAZOLE 40 MG/PACK PACK PO SCH (08:59)
[2022-06-03] MEDS: CALCIUM CARB 250MG /VITAMIN D 1 UDTAB PO SCH (08:59)
[2022-06-03 09:00] VITALS: BP 129/68
[2022-06-03] MEDS: METOPROLOL TARTRATE 25 MG TABLET PO SCH (09:00)
[2022-06-03] MEDS: PROSOURCE / PROSTAT (PYXIS) 30 ML UDC PO SCH (09:03)
[2022-06-03] MEDS: INSULIN REGULAR, HUMAN 100 UNIT/ML 3 ML VIAL SQ PRN (12:05)
[2022-06-03] MEDS ORDERED: METR500P3 IV (14:08)
[2022-06-03] MEDS ORDERED: LEVO500P10 IV (14:08)
[2022-06-03] MEDS: LEVOFLOXACIN 500 MG /D5W 100ML 500 MG in PREMIX 1 EA IV SCH (14:37)
--- NOTE | 2022-06-03 17:21 | NUR ---
RN NOTE- DC TO [facility]. REPORT PHONED TO FACILITY. ID [id number] REMOVED. 22G HEP LOCK LEFT PER REQUEST OF FACILITY RN. VS STABLE. ORDERS REVIEWED AND UNDERSTOOD. NO PHOTOS REQUIRED FOR CHART. SKIN CLEAR/INTACT. ESCORTED OFF UNIT BY AMBULANCE STAFF
== END 2022-06-03 17:10 | disposition hospice, home (50) | DRG 871 ==
LOC: ER 21:47 → TELE 05-28 00:32 → MED 05-31 15:22
PROVIDERS: ADMIT Nurse Practitioner Acute Care; ATTEND Nurse Practitioner Acute Care
DX: A41.9 Sepsis, unspecified organism (principal); G93.41 Metabolic encephalopathy; I50.33 Acute on chronic diastolic (congestive) heart failure; J96.91 Respiratory failure, unspecified with hypoxia; J69.0 Pneumonitis due to inhalation of food and vomit; E44.0 Moderate protein-calorie malnutrition; E87.0 Hyperosmolality and hypernatremia; N39.0 Urinary tract infection, site not specified; E87.20 Acidosis, unspecified; Z68.1 Body mass index [BMI] 19.9 or less, adult; K92.2 Gastrointestinal hemorrhage, unspecified; G30.9 Alzheimer's disease, unspecified; B96.20 Unspecified Escherichia coli [E. coli] as the cause of diseases classified elsewhere; F02.80 Dementia in other diseases classified elsewhere, unspecified severity, without behavioral disturbance, psychotic disturbance, mood disturbance, and anxiety; D69.6 Thrombocytopenia, unspecified; E11.65 Type 2 diabetes mellitus with hyperglycemia; E88.09 Other disorders of plasma-protein metabolism, not elsewhere classified; E87.6 Hypokalemia; I25.10 Atherosclerotic heart disease of native coronary artery without angina pectoris; R62.7 Adult failure to thrive; Z66 Do not resuscitate; Z86.73 Personal history of transient ischemic attack (TIA), and cerebral infarction without residual deficits; R13.10 Dysphagia, unspecified; Z74.01 Bed confinement status; Z88.0 Allergy status to penicillin; K62.89 Other specified diseases of anus and rectum; I11.0 Hypertensive heart disease with heart failure; Z87.11 Personal history of peptic ulcer disease
CPT/HCPCS: 36415; 71045-TC; 74018; 80048-TC; 80053-TC; 80061-TC; 80076-TC; 81001; 82962-TC; 83540-TC; 83605-TC; 83690-TC; 83735-TC; 83880; 84100-TC; 84443-TC; 84484-TC; 85025-TC; 85730-TC; 87040-TC; 87081-TC; 87086-TC; 87186-TC; 92526; 92611-TC; 97110-TC; 97530-TC; A4216; A9563; C9113; C9803; G0378; J0696; J1815; J1940; J1956; J2185; J3480; J3490; J7030; J7050; J7060; J7070